=== PATIENT | female | born 1960 | race Two or more races ===

== ENCOUNTER 2018-11-22 07:39 | Emergency (ER) | payer BC ==
[~2018-11-22] VITALS: Ht 160 cm; Wt 61.0 kg
[2018-11-22] MEDS ORDERED: KETOROLAC 60MG/2ML VIAL IM ONE (11:00)
[2018-11-22 11:52] VITALS: BP 149/92
== END 2018-11-22 11:52 | disposition home or self-care (01) ==
LOC: ER 07:39
DX: S16.1XXA Strain of muscle, fascia and tendon at neck level, initial encounter (principal); R07.89 Other chest pain; V49.49XA Driver injured in collision with other motor vehicles in traffic accident, initial encounter; Y93.89 Activity, other specified; Y92.89 Other specified places as the place of occurrence of the external cause; Y99.8 Other external cause status
CPT/HCPCS: 71045; 96372; 99283; J1885